=== PATIENT | male | born 1985 | race Two or more races ===

== ENCOUNTER 2019-11-24 10:17 | Day surgery (SDC) | payer OTHER ==
[2019-11-24] MEDS ORDERED: QUESTRAN PACKET4 GM PO (13:09)
[2019-11-24] MEDS ORDERED: NEXIUM20 M1 PO (13:09)
== END 2019-11-24 14:36 | disposition home or self-care (01) ==
LOC: AMB-ENDOS 10:17
PROVIDERS: ATTEND Surgery
DX: K29.60 Other gastritis without bleeding (principal); K44.9 Diaphragmatic hernia without obstruction or gangrene; Z20.828 Contact with and (suspected) exposure to other viral communicable diseases

== ENCOUNTER 2024-12-01 06:00 | Day surgery (SDC) | payer OTHER ==
[2024-11-25 09:23] LABS: BASO % 0.6 % (0.1-1.2); EOS # 0.20 (0.04-0.54); EOS % 2.3 % (0.7-7.0); LYMPH # 2.34 (1.18-3.74); LYMPH % 27.3 % (19.3-53.1); MEAN PLATELET VOLUME 10.50 fl (9.4-12.4); MONO # 0.81 (0.24-0.82); MONO % 9.5 % (4.7-12.5); NEUT # 5.13 (1.56-6.13); NEUT % 59.8 % (34.0-71.1); RED CELL DISTRIBUTION WIDTH 12.4 % (11.6-14.4)
[2024-11-25 09:25] VITALS: BP 136/81
[2024-11-25 09:27] LABS: URINE APPEARANCE Clear; URINE BILIRRUBIN Negative (NEGATIVE); URINE BLOOD Negative; URINE COLOR Yellow; URINE GLUCOSE Negative (NEGATIVE); URINE KETONE Negative (NEGATIVE); URINE LEUKOCYTE Negative; URINE NITRATE Negative; URINE PROTEIN Negative (NEGATIVE); URINE UROBILINOGEN 0.2 E.U./dl
[2024-11-25 09:29] LABS: URINE BACTERIA 4.7 uL (0.0-1933); URINE EPITHELIAL CELLS 3.2 uL (0.0-38.8); URINE RBC 3.3 uL (0.0-20.8); URINE WBC 5.2 uL (0.0-23.2)
[2024-11-25 09:40] LABS: URINE CAST 0.43 uL (0.0-1.40)
[2024-11-25 09:47] LABS: INR 1.03
[2024-11-25 09:47] LABS: COVID-19 AG NEGATIVE (NEGATIVE)
[2024-11-25 09:57] LABS: ALT/SGPT 26.0 U/L (12-78); AST/SGOT 20.0 U/L (15-37); BILIRUBIN TOTAL 1.17 mg/dL (0.3-1.2); BUN CREA RATIO 14.0 (7.0-25.0); CREATININE SERUM 0.7 mg/dL (0.70-1.30); GFR 126.21; GLOBULINA 3.4 G/DL (2.4-3.5); GLUCOSE FASTING 89.0 mg/dL (65-100); OSMOLALITY SERUM 283.0 MOSM/KG (275-295)
[~2024-12-01] VITALS: Ht 177.8 cm; Wt 97.5 kg
[~2024-12-01 06:00] MED LIST: NASAL MIST126 ML; NEXIUM20 M1 PO; NORVASC2.5 M1; QUESTRAN PACKET4 GM PO
[2024-12-01] MEDS ORDERED: CEFAZOLIN SODIUM 1,000 MG VIAL ONE (07:26)
[2024-12-01] MEDS ORDERED: POVIDONE-IODINE 118 ML BOTT TOP ONE (07:29)
[2024-12-01] MEDS ORDERED: EPINEPHRINE HCL/PF 1 MG/ML AMPUL ONE (07:29)
[2024-12-01] MEDS ORDERED: LIDOCAINE HCL 1%/EPINEPHRINE 20ML VIAL IJ ONE (07:29)
[2024-12-01] MEDS ORDERED: POVIDONE-IODINE SCRUB 118 ML BOTT TOP ONE (07:29)
[2024-12-01] MEDS ORDERED: CIPROFLOXACIN HCL 0.175 MG/DR DROPS OTIC ONE (10:15)
[2024-12-01] MEDS ORDERED: MEPERIDINE HCL/PF 25 MG/ML VIAL IM PRN (12:15)
[2024-12-01] MEDS ORDERED: PROMETHAZINE HCL 25 MG/ML AMPUL IM PRN (12:15)
[2024-12-01] MEDS ORDERED: MORPHINE SULFATE 4 MG/ML VIAL IV ONE (12:25)
[2024-12-01] MEDS ORDERED: BACITRACIN 28.35 GM OINT.TUBE TOP ONE (13:15)
== END 2024-12-01 14:30 | disposition home or self-care (01) ==
LOC: CIR.AMB 06:00
PROVIDERS: ATTEND Otolaryngology Otology & Neurotology
DX: H90.12 Conductive hearing loss, unilateral, left ear, with unrestricted hearing on the contralateral side (principal); H71.22 Cholesteatoma of mastoid, left ear